=== PATIENT | male | born 1955 | race Caucasian/White ===

== ENCOUNTER 2016-10-03 20:47 | Emergency (ER) | payer OTHER ==
[2016-10-03 23:30] VITALS: BP 143/89
== END 2016-10-03 23:30 | disposition other institution (70) ==
LOC: ED 20:47
DX: S43.004A Unspecified dislocation of right shoulder joint, initial encounter (principal); S05.11XA Contusion of eyeball and orbital tissues, right eye, initial encounter; S01.01XA Laceration without foreign body of scalp, initial encounter; J45.909 Unspecified asthma, uncomplicated; Y35.811A Legal intervention involving manhandling, law enforcement official injured, initial encounter; Y93.9 Activity, unspecified; Y92.89 Other specified places as the place of occurrence of the external cause; Y99.8 Other external cause status
CPT/HCPCS: J1885; Q0092

== ENCOUNTER 2016-10-03 20:47 | Emergency (ER) | payer OTHER | END 2016-10-03 23:30 | disposition other institution (70) | LOC: ED 20:47 | DX: Z02.89 Encounter for other administrative examinations (principal) ==